=== PATIENT | male | born 1950 | race Caucasian/White ===

== ENCOUNTER 2018-03-09 18:53 | Emergency (ER) | payer OTHER ==
[~2018-03-09] VITALS: Ht 182.9 cm; Wt 87.0 kg
[2018-03-09] MEDS ORDERED: SODIUM CHLORIDE 0.9% 1,000ML IVBOLUS ONE (19:30)
[2018-03-09 19:41] LABS: ALANINE AMINOTRANSFERASE 21 U/L (12-78); ALBUMIN 1.9 g/dL (3.4-5.0); ANION GAP 10 mmol/L (5-15); CALCIUM 7.1 mg/dL (8.5-10.1); CHLORIDE 117 mmol/L (98-107)
[2018-03-09 19:45] LABS: ALKALINE PHOSPHATASE 121 U/L (45-117); BILIRUBIN,TOTAL 1.5 mg/dL (0.2-1.0); TOTAL PROTEIN 7.6 g/dL (6.4-8.2)
[2018-03-09 19:58] LABS: MD YES; MEAN CORPUSCULAR HEMOGLOBIN 30.9 pg (27.5-34.5); MEAN CORPUSCULAR HGB CONC 33.9 g/dL (33.2-36.2); MEAN CORPUSCULAR VOLUME 91.1 fL (81-97); MEAN PLATELET VOLUME 8.7 fL (7.4-10.4); PLATELET COUNT 116 x10^3/uL (130-400); RED BLOOD COUNT 2.57 x10^6/uL (4.38-5.82); RED CELL DISTRIBUTION WIDTH 26.4 % (9.4-14.8)
[2018-03-09 20:04] LABS: EOS#(MANUAL) 0.15 x10^3/uL (0.0-0.4); EOS% (MANUAL) 4 % (1-7); LYMPH#(MANUAL) 1.44 x10^3/uL (1-3.4); LYMPHS% (MANUAL) 38 % (22-44); MONOS#(MANUAL) 0.38 x10^3/uL (0.3-2.7); MONOS% (MANUAL) 10 % (2-9); SEG#(MANUAL) 1.82 x10^3/uL (1.8-6.8); SEGS% (MANUAL) 48 % (42-75)
[2018-03-09 20:06] LABS: ANISOCYTOSIS 1+; HYPOCHROMIA 1+; TARGET CELLS 1+
[2018-03-09 20:07] LABS: <PLATELET ESTIMATE> ADEQUATE; <PLT MORPHOLOGY> NORMAL PLT MORPH
[2018-03-10 02:27] VITALS: BP 100/62
== END 2018-03-10 02:28 | disposition home or self-care (01) ==
LOC: ED 22:28
DX: F10.220 Alcohol dependence with intoxication, uncomplicated (principal); E86.0 Dehydration; Z71.9 Counseling, unspecified
CPT/HCPCS: 36415; 80053; 80307; 85025; 96360; 99284; J7030